=== PATIENT | female | born 1970 | race Caucasian/White ===

== ENCOUNTER 2020-06-17 20:49 | Emergency (ER) | payer MEDICAID, OTHER ==
[~2020-06-17] VITALS: Ht 167.6 cm; Wt 113.6 kg
[2020-06-17 23:00] VITALS: BP 154/87
[2020-06-17] MEDS ORDERED: BACITRACIN 0.9 GM PACKET OINTMENT TP ONE (23:00)
== END 2020-06-17 23:55 | disposition home or self-care (01) ==
LOC: EMS 20:49
DX: S81.812A Laceration without foreign body, left lower leg, initial encounter (principal); W22.8XXA Striking against or struck by other objects, initial encounter; Y93.89 Activity, other specified; Y92.89 Other specified places as the place of occurrence of the external cause; Y99.8 Other external cause status
CPT/HCPCS: Z7502; Z7610

== ENCOUNTER 2020-06-22 19:04 | Emergency (ER) | payer MEDICAID ==
[~2020-06-22] VITALS: Ht 167.6 cm; Wt 127.3 kg
[2020-06-22] MEDS ORDERED: [UNRECOGNIZED DRUG - OTHER] PO (19:08)
[2020-06-22 20:29] VITALS: BP 135/84
== END 2020-06-22 20:46 | disposition home or self-care (01) ==
LOC: EMS 20:45
DX: S81.812A Laceration without foreign body, left lower leg, initial encounter (principal); W55.01XA Bitten by cat, initial encounter; Y93.89 Activity, other specified; Y92.89 Other specified places as the place of occurrence of the external cause; Y99.8 Other external cause status
CPT/HCPCS: 99283; Z7502

== ENCOUNTER 2021-01-05 13:12 | Emergency (ER) | payer MEDICAID, OTHER ==
[~2021-01-05] VITALS: Ht 167.6 cm; Wt 120.0 kg
[~2021-01-05 13:12] MED LIST: [UNRECOGNIZED DRUG - OTHER] PO
[2021-01-05 13:19] VITALS: BP 134/91
[2021-01-05] MEDS ORDERED: LIDOCAINE 2% VISCOUS 15 ML SOLUTION UDCUP TP ONE (14:15)
[2021-01-05] MEDS ORDERED: ACETAMINOPHEN 325 MG TABLET PO ONE (14:45)
== END 2021-01-05 15:39 | disposition home or self-care (01) ==
LOC: EMS 13:12
DX: S81.811A Laceration without foreign body, right lower leg, initial encounter (principal); E11.9 Type 2 diabetes mellitus without complications; I10 Essential (primary) hypertension; W22.8XXA Striking against or struck by other objects, initial encounter; Y93.89 Activity, other specified; Y92.89 Other specified places as the place of occurrence of the external cause; Y99.8 Other external cause status
CPT/HCPCS: 99283

== ENCOUNTER 2021-08-22 09:21 | Inpatient (IN) | payer OTHER ==
[~2021-08-22] VITALS: Ht 165.1 cm; Wt 108.4 kg
[2021-08-22] MEDS ORDERED: LIDOCAINE 1% 10 ML VIAL SQ ONE (11:00)
[2021-08-22] MEDS ORDERED: ACETAMINOPHEN 500 MG TABLET PO ONE (11:00)
[2021-08-22] MEDS ORDERED: BACITRACIN 0.9 GM PACKET OINTMENT TP ONE (11:00)
[2021-08-22] MEDS ORDERED: FentaNYL CITRATE PF 100 MCG/2 ML VIAL IVP ONE (12:00)
[2021-08-22] MEDS ORDERED: KETOROLAC TROMETHAMINE 60 MG/2 ML VIAL IM ONE (12:00)
[2021-08-22] MEDS ORDERED: GLYCOPYRROLATE 0.2 MG/ML VIAL IM ONE (12:00)
[2021-08-22] MEDS ORDERED: MIDAZOLAM HCL 2 MG/2 ML VIAL IVP ONE (12:00)
[2021-08-22] MEDS ORDERED: METOPROLOL TARTRATE 5 MG/5 ML VIAL IVP ONE (12:00)
[2021-08-22] MEDS ORDERED: DEXAMETHASONE SOD PHOS 4 MG/ML VIAL IVP ONE (12:00)
[2021-08-22] MEDS ORDERED: NEOSTIGMINE METHYLSULFATE 1 MG/ML 10 ML VIAL IVP ONE (12:00)
[2021-08-22] MEDS ORDERED: ROCURONIUM BROMIDE 10 MG/ML 5 ML VIAL IVP ONE (12:00)
[2021-08-22] MEDS ORDERED: PROPOFOL 1% 20 ML VIAL IVP ONE (12:00)
[2021-08-22] MEDS ORDERED: LIDOCAINE/PF 2% 5 ML VIAL IM ONE (12:00)
[2021-08-22] MEDS ORDERED: ONDANSETRON HCL 4 MG/2 ML VIAL IVP ONE ×2 (12:00→13:00)
[2021-08-22] MEDS ORDERED: CeFAZolin 2 GM/DEXTROSE 50 ML IV ONE (13:00)
[2021-08-22] MEDS ORDERED: MORPHINE SULFATE 4 MG/ML SYRINGE IVP ONE (13:00)
[2021-08-22] MEDS ORDERED: POVIDONE-IODINE 10% 120 ML SOLUTION TP ONE (14:30)
[2021-08-22] MEDS ORDERED: 0.9% SODIUM CHLORIDE 1000 ML IRRIG SOLUTION BOTTLE IRRIG ONE (14:30)
[2021-08-22 15:00] LABS: BASOPHILS % (AUTO) 0.2 % (0.0-2.0); EOSINOPHILS % (AUTO) 0.2 % (1.0-6.0); HEMATOCRIT 39.9 % (36-46); HEMOGLOBIN 12.8 g/dL (12.0-16.0); LYMPHOCYTES # (AUTO) 1.9 K/uL (1.0-4.8); LYMPHOCYTES % (AUTO) 24.6 % (22.0-44.0); MEAN CORPUSCULAR HEMOGLOBIN 27.6 pg (26.0-34.0); MEAN CORPUSCULAR HGB CONC 32.1 G/dL (31.0-37.0); MEAN CORPUSCULAR VOLUME 86 fL (80-100); MONOCYTES # (AUTO) 0.6 K/uL (0.1-1.0); MONOCYTES % (AUTO) 7.4 % (2.0-9.0); NEUTROPHILS # (AUTO) 5.3 K/uL (1.8-7.7); NEUTROPHILS % (AUTO) 67.6 % (40.0-70.0); PLATELET COUNT (AUTO) 261 K/uL (150-450); RED BLOOD CELL COUNT(AUTO) 4.64 MIL/uL (4.00-5.20); RED CELL DISTRIBUTION WIDTH 15.5 % (11.5-14.5)
[2021-08-22] MEDS ORDERED: 0.9% SODIUM CHLORIDE 10 ML SYRINGE IVP PRN (15:00)
[2021-08-22] MEDS ORDERED: ONDANSETRON HCL 4 MG/2 ML VIAL IVP PRN ×2 (15:00→15:15)
[2021-08-22] MEDS ORDERED: ACETAMINOPHEN 325 MG TABLET PO PRN ×2 (15:00→15:15)
[2021-08-22] MEDS: CefTRIAXone 1 GM/DEXTROSE 50 ML IV SCH (15:14)
[2021-08-22] MEDS ORDERED: INSULIN LISPRO 100 UNITS/ML SQ PRN (15:15)
[2021-08-22] MEDS ORDERED: DEXTROSE 50%-WATER 25 GM/50 ML SYRINGE IVP PRN (15:15)
[2021-08-22] MEDS ORDERED: MORPHINE SULFATE 2 MG/ML SYRINGE IVP PRN (15:15)
[2021-08-22] MEDS ORDERED: ZOLPIDEM TARTRATE 5 MG TABLET PO PRN (15:15)
[2021-08-22] MEDS ORDERED: OxyCODONE HCL/ACETAMINOPHEN 5-325 MG TABLET PO PRN (15:15)
[2021-08-22 15:20] LABS: D-DIMER 0.85 mg/L FEU (0.00-0.50); PROTHROMBIN TIME 10.6 SEC (9.4-11.6)
[2021-08-22 15:29] LABS: ANION GAP 7 mmol/L (8-16); CALCIUM, TOTAL 9.1 mg/dL (8.8-10.5); CARBON DIOXIDE 29 mmol/L (22-29); CHLORIDE 104 mmol/L (98-107); CREATININE 0.96 mg/dL (0.60-1.30); GLOMERULAR FILTR. RATE CALC > 60 mL/min (>60); GLUCOSE,RANDOM 126 mg/dL (70-110); POTASSIUM 3.5 mmol/L (3.5-5.1); SODIUM SERUM 140 mmol/L (136-145); UREA NITROGEN, BLOOD 13 mg/dL (7-18)
[2021-08-22 15:35] LABS: ALANINE AMINOTRANSFERASE 37 U/L (12-78); ALBUMIN 2.8 g/dL (3.4-5.0); ALKALINE PHOSPHATASE 53 U/L (46-116); ASPARTATE AMINOTRANSFERASE 24 U/L (15-37); BILIRUBIN,TOTAL 0.2 mg/dL (0.1-1.0); TOTAL PROTEIN, SERUM 8.3 g/dL (6.4-8.2)
[2021-08-22] MEDS ORDERED: VANCOMYCIN HCL 1.5 GM in DEXTROSE 5%-WATER 250 ML IV ONE (16:00)
[2021-08-22] MEDS ORDERED: BUPIVACAINE HCL/PF 0.25% 30 ML VIAL ONE (17:35)
[2021-08-22] MEDS ORDERED: SODIUM CL IRRIG SOLN BAG 0 ML IRRIG ONE (17:36)
[2021-08-22] MEDS ORDERED: MUPIROCIN CALCIUM 2% 22 GM OINTMENT ONE (17:36)
[2021-08-22] MEDS ORDERED: VANCOMYCIN HCL 1 GM/VIAL ONE (17:36)
[2021-08-22] MEDS ORDERED: SODIUM CHLORIDE 0.9% 0 ML ONE (17:36)
[2021-08-22] MEDS ORDERED: RINGERS SOLUTION,LACTATED 1,000 ML IV ONE (18:05)
[2021-08-22] MEDS ORDERED: BACITRACIN 28 GM OINTMENT TP ONE (18:44)
[2021-08-22] MEDS ORDERED: FentaNYL CITRATE PF 100 MCG/2 ML VIAL IVP PRN (19:00)
[2021-08-22] MEDS ORDERED: HYDROmorphone 2 MG/ML VIAL IVP PRN (19:00)
[2021-08-22] MEDS ORDERED: MEPERIDINE-PF 25 MG/ML VIAL IVP PRN (19:00)
[2021-08-22] MEDS: OXYGEN THERAPY IH SCH (20:00)
[2021-08-22 20:25] VITALS: BP 127/90
[2021-08-22 21:58] LABS: COVID AG,FIA SOURCE NASAL SWAB
[2021-08-22] MEDS: DOCUSATE SODIUM 100 MG CAPSULE PO SCH (22:00)
[2021-08-23 02:24] LABS: GLUCOMETER DEV NAME(LOC) 6N.1; GLUCOSE,POINT OF CARE 120 MG/DL (70-110)
[2021-08-23 03:45] VITALS: BP 127/83
[2021-08-23 07:07] LABS: GLUCOMETER DEV NAME(LOC) 6S.1; GLUCOSE,POINT OF CARE 113 MG/DL (70-110)
[2021-08-23 07:39] LABS: ANION GAP 6 mmol/L (8-16); CALCIUM, TOTAL 8.4 mg/dL (8.8-10.5); CARBON DIOXIDE 29 mmol/L (22-29); CHLORIDE 105 mmol/L (98-107); CREATININE 0.88 mg/dL (0.60-1.30); GLOMERULAR FILTR. RATE CALC > 60 mL/min (>60); GLUCOSE,RANDOM 133 mg/dL (70-110); POTASSIUM 3.8 mmol/L (3.5-5.1); SODIUM SERUM 140 mmol/L (136-145); UREA NITROGEN, BLOOD 10 mg/dL (7-18)
[2021-08-23] MEDS: OXYGEN THERAPY IH SCH ×2 (08:00→19:42)
[2021-08-23 08:09] VITALS: BP 136/88
[2021-08-23] MEDS: MULTIVITAMINS WITH MINERALS, THERAPEUTIC TABLET PO SCH (08:19)
[2021-08-23] MEDS: FAMOTIDINE 20 MG TABLET PO SCH (08:19)
[2021-08-23] MEDS: HEPARIN SODIUM,PORCINE 5,000 UNITS/ML VIAL SQ SCH ×3 (08:19→23:05)
[2021-08-23] MEDS: DOCUSATE SODIUM 100 MG CAPSULE PO SCH ×2 (08:19→19:41)
[2021-08-23] MEDS: VANCOMYCIN HCL 1.25 GM in DEXTROSE 5%-WATER 250 ML IV SCH ×2 (08:26→19:32)
[2021-08-23 13:45] LABS: GLUCOMETER DEV NAME(LOC) 6S.1; GLUCOSE,POINT OF CARE 97 MG/DL (70-110)
[2021-08-23] MEDS ORDERED: SODIUM CHLORIDE 0.9% 250 ML IV ONE ×2 (14:39→20:57)
[2021-08-23] MEDS: CefTRIAXone 1 GM/DEXTROSE 50 ML IV SCH (14:54)
[2021-08-23 16:21] VITALS: BP 118/65
[2021-08-23 19:37] VITALS: BP 115/85
[2021-08-23 23:42] LABS: GLUCOMETER DEV NAME(LOC) 6S.1; GLUCOSE,POINT OF CARE 105 MG/DL (70-110)
[2021-08-23 23:42] LABS: GLUCOMETER DEV NAME(LOC) 6S.1; GLUCOSE,POINT OF CARE 122 MG/DL (70-110)
[2021-08-24 04:00] VITALS: BP 117/76
[2021-08-24 06:14] LABS: GLUCOMETER DEV NAME(LOC) 6S.1; GLUCOSE,POINT OF CARE 95 MG/DL (70-110)
[2021-08-24 06:53] LABS: ANION GAP 5 mmol/L (8-16); CALCIUM, TOTAL 8.4 mg/dL (8.8-10.5); CARBON DIOXIDE 32 mmol/L (22-29); CHLORIDE 109 mmol/L (98-107); CREATININE 0.88 mg/dL (0.60-1.30); GLOMERULAR FILTR. RATE CALC > 60 mL/min (>60); GLUCOSE,RANDOM 97 mg/dL (70-110); POTASSIUM 3.6 mmol/L (3.5-5.1); SODIUM SERUM 146 mmol/L (136-145); UREA NITROGEN, BLOOD 11 mg/dL (7-18); VANCOMYCIN,RANDOM 19.2 mcg/mL (25.0-50.0)
[2021-08-24 07:49] VITALS: BP 116/78
[2021-08-24] MEDS: OXYGEN THERAPY IH SCH (08:00)
[2021-08-24] MEDS: VANCOMYCIN HCL 1.25 GM in DEXTROSE 5%-WATER 250 ML IV SCH (09:56)
[2021-08-24] MEDS: DOCUSATE SODIUM 100 MG CAPSULE PO SCH (09:57)
[2021-08-24] MEDS: FAMOTIDINE 20 MG TABLET PO SCH (09:57)
[2021-08-24] MEDS: MULTIVITAMINS WITH MINERALS, THERAPEUTIC TABLET PO SCH (09:57)
[2021-08-24] MEDS: HEPARIN SODIUM,PORCINE 5,000 UNITS/ML VIAL SQ SCH (09:57)
[2021-08-24 15:23] LABS: GLUCOMETER DEV NAME(LOC) 6N.1; GLUCOSE,POINT OF CARE 144 MG/DL (70-110)
== END 2021-08-24 14:10 | disposition home or self-care (01) | DRG 604 ==
LOC: EMS 09:21 → 6N 15:08
PROVIDERS: ADMIT Internal Medicine; ATTEND Internal Medicine
PROC: 0HQKXZZ Repair Right Lower Leg Skin, External Approach (ICD-10-PCS; 2021-08-22)
PROC: 0HQLXZZ Repair Left Lower Leg Skin, External Approach (ICD-10-PCS; principal; 2021-08-22 18:00)
DX: S81.011A Laceration without foreign body, right knee, initial encounter (principal); U07.1 COVID-19; E44.0 Moderate protein-calorie malnutrition; S91.012A Laceration without foreign body, left ankle, initial encounter; E11.9 Type 2 diabetes mellitus without complications; I10 Essential (primary) hypertension; M06.9 Rheumatoid arthritis, unspecified; E66.01 Morbid (severe) obesity due to excess calories; W18.39XA Other fall on same level, initial encounter; Y93.89 Activity, other specified; Y92.89 Other specified places as the place of occurrence of the external cause; Y99.8 Other external cause status; Z68.39 Body mass index [BMI] 39.0-39.9, adult
CPT/HCPCS: 80048; 80053; 80202; 82962; 84484; 85025; 85379; 85610; 85730; 93005; 97162; 99285; J0690; J0696; J1100; J1644; J1885; J2250; J2270; J2405; J2704; J3010; J3370; J3490; J7030; J7050; J7060; J7120; Q9967

== ENCOUNTER 2023-11-11 22:53 | Emergency (ER) | payer OTHER, SELFPAY ==
[~2023-11-11] VITALS: Ht 167.6 cm; Wt 102.0 kg
[2023-11-11 23:34] VITALS: BP 133/74; PULSE 74; RESP 16; TEMP 98.3
[2023-11-12] MEDS ORDERED: METH2.5T6 PO (00:02)
[2023-11-12] MEDS ORDERED: SENN-277 PO (00:02)
[2023-11-12] MEDS ORDERED: FOLI-130 PO (00:02)
[2023-11-12] MEDS ORDERED: VALA10002 PO (02:09)
[2023-11-12] MEDS: ValACYclovir HCL 500 MG TABLET PO ONE (02:28)
== END 2023-11-12 02:58 | disposition home or self-care (01) ==
LOC: EMS 22:59
DX: B02.9 Zoster without complications (principal); E11.9 Type 2 diabetes mellitus without complications; I10 Essential (primary) hypertension; M06.9 Rheumatoid arthritis, unspecified
CPT/HCPCS: 99283